=== PATIENT | female | born 2005 | race Hispanic/Latino ===

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

== ENCOUNTER 2023-01-27 15:42 | Emergency (ER) | payer BC, SELFPAY ==
[2023-01-27 15:55] VITALS: BP 117/82; PULSE 85; RESP 16; TEMP 36.7; O2SAT 100
--- NOTE | 2023-01-27 16:03 | ED.URI ---
HPI - URI/Sore Throat General Chief Complaint: Upper Respiratory Infection Stated Complaint: Cough/SOB Time Seen by Provider: 01/27/23 16:03 History of Present Illness HPI Narrative: 17-year-old female presents with complaint of nasal congestion, sore throat, cough for the past 3 days. Afebrile. Denies nausea vomiting diarrhea. Reports redness and drainage from left eye starting yesterday. No vision changes. Denies chest pain shortness of breath. All systems reviewed and negative except as noted above. Related Data Allergies Allergy/AdvReac Type Severity Reaction Status Date / Time No Known Allergies Allergy Verified 01/27/23 15:54 Review of Systems Review of Systems: CONSTITUTIONAL: Denies fever, chills, or sweats. EYES: Denies visual changes. Reports redness, discharge left eye.. ENT: Reports rhinorrhea, congestion, sore throat. Denies otalgia. CARDIOVASCULAR: Denies chest pain, palpitations, or edema. RESPIRATORY: Reports cough. Denies dyspnea. GASTROINTESTINAL: Denies abdominal pain, nausea, vomiting, or diarrhea. GENITOURINARY: Denies dysuria or hematuria. SKIN: Denies rash or itching. MUSCULOSKELETAL: Denies back pain, joint pain, or myalgia. NEUROLOGIC: Denies headache, numbness, or weakness. PSYCHIATRIC: Denies anxiety or depression. All other systems reviewed are negative, except as documented in HPI. PMFSH Comments At time of signature, agree with nursing past medical, surgical, social and family history. There is no relevant family history pertinent to the presenting complaint. Exam Narrative: GENERAL: This is a well-nourished, well-developed patient, in no apparent distress. HEAD: normocephalic, atraumatic. EYES: PERRL. Sclera And conjunctiva of left eye erythematous with yellow drainage. Vision is grossly intact. EARS: External ears normal, auditory canals clear and without drainage, TMs normal without perforation. Hearing grossly intact. NOSE: External nose normal with clear nasal drainage, erythema and swelling to bilateral nares. THROAT: Mucous membranes moist, Erythematous, tonsils 1+ bilaterally without exudates. NECK: Neck supple, non-tender without lymphadenopathy, masses or thyromegaly. CARDIOVASCULAR: Regular rate and rhythm without murmurs, gallops, or rubs. RESPIRATORY: Clear to auscultation. Breath sounds equal bilaterally. No wheezes, rales, or rhonchi. SKIN: warm, Dry, intact with no suspicious lesions or rash, good texture and turgor. NEURO: awake, alert, and oriented to person, place and time. There were no obvious focal neurologic abnormalities. EXTREMITIES: No joint tenderness, effusion, or edema noted. Course Course Level of Care: Express Care Visit Vital Signs Vital signs: Vital Signs Temperature 36.7 C 01/27/23 15:55 Pulse Rate 85 01/27/23 15:55 Respiratory Rate 16 01/27/23 15:55 Blood Pressure 117/82 01/27/23 15:55 Pulse Oximetry 100 01/27/23 15:55 Oxygen Delivery Room Air 01/27/23 15:55 Temperature 36.7 C 01/27/23 15:55 Pulse Rate 85 01/27/23 15:55 Respiratory Rate 16 01/27/23 15:55 Blood Pressure 117/82 01/27/23 15:55 Pulse Oximetry 100 01/27/23 15:55 Oxygen Delivery Room Air 01/27/23 15:55 Reviewed MDM - URI/Sore Throat MDM Narrative Medical decision making narrative: Patient is aware of diagnosis, understands and agrees to treatment plan. Anticipatory guidance given. Patient agrees to follow-up as directed and is aware of reasons to seek care at the emergency department. Portions of this record may have been created with voice recognition software Differential Diagnosis Differential diagnosis: Likely pharyngitis Discharge Plan Discharge Clinical Impression: Strep throat, Acute bacterial conjunctivitis of left eye Patient Disposition: Home, Self-Care Condition: Stable Instructions: Antibiotic Form, Strep Throat (ED) Additional Instructions: Your strep test was positive
== END 2023-01-27 16:15 | disposition home or self-care (01) ==
PROVIDERS: Emergency Provider Nurse Practitioner Family
DX: J02.0 Streptococcal pharyngitis (principal); H10.32 Unspecified acute conjunctivitis, left eye; Z20.822 Contact with and (suspected) exposure to COVID-19
CPT/HCPCS: 87426; 87880; 99213; C9803; G0463

== ENCOUNTER 2025-04-05 22:44 | Emergency (ER) | payer SELFPAY ==
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
[2025-04-05 22:43] VITALS: BP 121/72; PULSE 71; RESP 18; TEMP 36.8; O2SAT 100
--- NOTE | 2025-04-05 22:52 | ECG_ITS ---
Test Date: 2025-04-05 22:52:00 Measurements Intervals [place] Rate: 73 P: 64 AL: 162 QRS: 74 QRSD: 98 T: 53 QT: 398 QTc: 441 Interpretive Statements SINUS RHYTHM WITH SINUS ARRHYTHMIA No previous ECG available for comparison Electronically Signed On 04-06-2025 06:03:48 CDT by Kaylene Huerta M.D.
[2025-04-05] MEDS: LACTATED RINGERS 1,000 ML 999 ML IV CONT (22:57)
[2025-04-05 23:01] LABS: Hematocrit 34.8 % (37.0-47.0); Hemoglobin 11.5 g/dL (12.0-15.0); Immature Granulocyte Percent A 0.4 % (0-0.5); Lymphocytes Absolute Auto 2.98 K/mm3 (0.9-3.2); Mean Corpuscular HGB Conc 33.0 g/dl (32-36); Mean Corpuscular Hemoglobin 26.9 pg (26-34); Mean Corpuscular Volume 81.5 fl (80-100); Nucleated Red Blood Cells Absolute Auto 0.000 K/mm3 (0.0-0.012); Nucleated Red Blood Cells Perc 0.0 % (0.0-0.2); Platelet Count Result 241 k/mm3 (150-375); Red Blood Count 4.27 M/mm3 (4.2-5.4); White Blood Count 7.2 K/mm3 (4.5-10.0)
[2025-04-05 23:04] VITALS: PULSE 65
[2025-04-05 23:11] LABS: Alanine Aminotransferase 12 U/L (6-35); Albumin Level 4.3 g/dL (3.5-5.1); Alkaline Phosphatase 73 U/L (38-126); Anion Gap 8 mmol/L (4-12); Aspartate Amino Transferase 22 U/L (14-36); Bilirubin,Total 0.3 mg/dL (0.2-1.3); Blood Urea Nitrogen 15 mg/dL (7-17); Calcium 8.4 mg/dL (8.4-10.2); Carbon Dioxide 22 mmol/L (22-30); Chloride 107 mmol/L (98-107); Estimated CRCL calculation 79 ml/min; Estimated Glomerular Filt Rate > 60; Glucose 117 mg/dL (65-110); Potassium 3.6 mmol/L (3.4-5.0); Sodium 137 mmol/L (137-145); Total Protein 7.3 g/dL (6.3-8.2)
[2025-04-05 23:11] LABS: Alveolar/Arterial O2 Gradient 12.6 mmHg; Carboxyhemoglobin 0.1 % THb (0-2.0); Fractional Inspired Oxygen 21 %; HCO3 ABG 21.2 mEq/l (22.0-26.0); Methemoglobin ABG 0.3 %THb (0-1.5); Oxygen Content ABG 15.8 %vol (16.0-22.0); Oxygen Saturation ABG 97.1 % (95.0-100.0); PCO2 ABG 36.6 mmHg (35.0-45.0); PO2 ABG 93.3 mmHg (80.0-100.0); PO2 FiO2 Ratio Arterial Blood 4.44 %; Reduced Hemoglobin 3.3 %THb (0-5.0)
[2025-04-05 23:14] LABS: Modified Allen's Test Pass; Site Drawn LEFT RADIAL
[2025-04-05 23:39] LABS: SPREG INTERNAL CONTROL Positive; Serum Qual hCG Negative
[2025-04-05 23:42] VITALS: BP 108/78; PULSE 75
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
[2025-04-05 23:43] VITALS: BP 102/66; BP 118/72; PULSE 66
[2025-04-05 23:45] VITALS: BP 127/62; PULSE 70; RESP 12; O2SAT 97
--- OUTSIDE RECORDS SUMMARY | 2025-04-05 23:53 | XMS_ITS | Clinical Summary ---
Author Organization [facility] Address [address] [place] [address] Care Team Providers Care Wildlife Veterinarian Name Role Phone Unknown, Provider Primary Care Provider Unavaila ble Source Comments [facility],non-owned Affiliates and Associated Physician Practices is amultiple site organization consisting of ambulatory clinics and hospital sitesin [place], [place], [place] and [place]. This disclosure is being madepursuant to the Care Everywhere program and may not contain all information available regarding this patient. Last updated 18.[employer] [facility] Allergies No known active allergies Medications * Be aware that medications may not be up to date on this document. Alwaysverify current medications with the patient. 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 Pulse 55 05/13/2016 2:56 PM PLANT OPER[employer] VICE PRESIDENT Temperature 37.1 C (98.8 F) 05/13/2016 2:56 PM PLANT OPERATIONS VICE PRESIDENT Respiratory Rate 20 05/12/2016 10:12 AM CDT Oxygen Saturation 97% 05/12/2016 10:12 AM CDT Inhaled Oxygen Concentration - - Weight 56.9 kg (125 lb 8 oz) 05/13/2016 2:56 PM PLANT OPERATIONS VICE PRESIDENT Height 168.9 cm (5' 6.5) 05/13/2016 2:56 PM PLANT OPERATIONS VICE PRESIDENT Body Mass Index 19.95 05/13/2016 2:56 PM PLANT OPERATIONS VICE PRESIDENT Plan of Treatment Health Maintenance Due Date Last Done Comments HIV SCREENING 2018 HPV VACCINE (1 - 3-dose series) 2018 CHLAMYDIA/GONORRHEA SCREENING 2019 MENINGOCOCCAL (Group B) VACC INE SHARED DECISION-MAKING (1 of 2 - Standard) 2019 HEPATITIS C SCREENING 07/23/2021 HEPATITIS B VACCINE (1 of 3 - 19+ 3-dose series) 2022 DEPRESSION SCREENING 07/08/2024 COVID-19 VACCINE (1 - 2023-2 5 season) 2025 INFLUENZA VACCINE (#1) 2025 DTAP/TDAP/TD VACCINES (2 - T d or Tdap) 05/13/2026 05/13/2016 ZOSTER VACCINE (1 of 2) 2053 MENINGOCOCCAL GROUPS A/C/Y/W VACCINE Aged Out 05/13/2016 No longer eligible b ased on patient's age to complete this topic HIB VACCINE Aged Out No longer eligi ble based on patient's age to complete this topic PNEUMOCOCCAL VACCINE Aged Out No long er eligible based on patient's age to complete this topic Care Teams Wildlife Veterinarian Relationship Specialty Start Date End Date Unknown, Provider PCP - General 05/12/16
== END 2025-04-06 00:07 | disposition home or self-care (01) ==
LOC: ANHED 23:51
PROVIDERS: Emergency Provider Student in an Organized Health Care Education/Training Program
DX: I95.1 Orthostatic hypotension (principal)
CPT/HCPCS: 36415; 36600; 71046; 80053; 82375; 82805; 83050; 84703; 85018; 85025; 93005; 96360; 99284; J7120